=== PATIENT | female | born 1980 | race Caucasian/White ===

== ENCOUNTER → 2024-05-14 | Outpatient (CLI) | payer BC, SELFPAY ==
--- NOTE | 2024-05-14 13:25 | XR_ITS ---
Examination: Foot, right, 3 views Technique: AP, oblique, lateral views foot, 3 views Date and time of exam: May 06, 2024 1336 hrs. Indications: Right foot pain beginning 3 days ago no trauma Findings: Moderate osteopenia Mild narrowing first metatarsophalangeal joint No fracture No cortical bone destruction Impression: Mild narrowing first metatarsophalangeal joint
== END | disposition home or self-care (01) ==
LOC: CDIM 13:10
PROVIDERS: Referring Provider Nurse Practitioner Family; Visit Provider Nurse Practitioner Family
DX: M25.871 Other specified joint disorders, right ankle and foot (principal)
CPT/HCPCS: 73630

== ENCOUNTER → 2024-08-12 | Outpatient (CLI) | payer BC, SELFPAY ==
--- NOTE | 2024-08-12 15:45 | XR_ITS ---
Examination: Screening digital mammography, bilateral Computer aided detection 3-D breast Tomosynthesis, bilateral Date and time of exam: August 12, 2024 1452 hours Comparison made to mammograms dating to April 09, 2023h INDICATIONS: Burning sensation right breast 6 months Indication: Screening Technique: Nonmagnified MLO, CC views of the breasts to been obtained, reconstructed from 3-D Tomosynthesis images. R2 computer aided detection program utilized for evaluation of suspicious masses and/or abnormal calcifications. 3-D Tomosynthesis images obtained. Findings: The breasts are heterogeneously dense, which may obscure small masses 14 mm mass inner right breast posterior depth 5.1 cm from the nipple 6 mm nodule inner left breast anterior depth 4.3 cm from the nipple Impression: BI-RADS Category 0: Incomplete: Need additional imaging evaluation Recommend follow-up spot tomographic views in her upper right breast and inner upper left breast to assess focal asymmetries described above, as well as bilateral breast sonography
== END | disposition home or self-care (01) ==
PROVIDERS: PCP Nurse Practitioner Family
DX: Z12.31 Encounter for screening mammogram for malignant neoplasm of breast (principal); N64.89 Other specified disorders of breast
CPT/HCPCS: 77063; 77067

== ENCOUNTER → 2024-09-15 | Outpatient (CLI) | payer BC, SELFPAY ==
--- NOTE | 2024-09-15 09:00 | XR_ITS ---
Examination: Breast ultrasound complete, bilateral Date and time of exam: September 15, 2024 0916 hours INDICATIONS: Burning sensation in the breast 6 months, mammogram August 12, 2024 14 mm mass inner right breast posterior depth 6 mm nodule inner left breast Technique: Real-time grayscale ultrasonographic imaging bilateral breasts, including all 4 quadrants as well as nipple retroareolar and axillary regions. Findings: Sonographic images right breast Multiple benign cysts 4:00 solid nodule indistinct margins 13 x 5 x 12 mm Sonographic images left breast Benign cysts No solid nodules IMPRESSION: BI-RADS Category 4: Suspicious for malignancy Suspicious mass 4:00 position right breast, 13 x 5 x 12 mm, recommend rebiopsy of this mass to exclude breast carcinoma
--- NOTE | 2024-09-15 10:00 | XR_ITS ---
Examination: Diagnostic digital mammography, bilateral Computer aided detection 3-D breast Tomosynthesis, bilateral Date and time of exam: September 15, 2024 0934 hours INDICATIONS: Mammogram August 12, 2024 14 mm mass inner right breast 6 mm nodule inner left breast Technique: Nonmagnified MLO, CC views of the breasts to been obtained, reconstructed from 3-D Tomosynthesis images. R2 computer aided detection program utilized for evaluation of suspicious masses and/or abnormal calcifications. 3-D Tomosynthesis images obtained. Findings: The breasts are heterogeneously dense, which may obscure small masses Poorly defined mass inner right breast on the spot compression CC views, likely corresponding to the 4:00 solid nodule indistinct margins 13 x 5 x 12 mm on the right breast sonogram today No suspicious left breast mass is noted on the spot compression views Impression: BI-RADS Category 4: Suspicious for malignancy Suspicious nodule inner right breast on the spot compression CC view, likely corresponding to the 4:00 nodule indistinct margins 13 x 5 x 12 mm on the right breast sonogram today, biopsy of this mass is needed to exclude breast carcinoma, under ultrasound guidance.
== END | disposition home or self-care (01) ==
PROVIDERS: PCP Nurse Practitioner Family; Referring Provider Nurse Practitioner Family; Visit Provider Nurse Practitioner Family
DX: R92.343 Mammographic extreme density, bilateral breasts (principal); N63.10 Unspecified lump in the right breast, unspecified quadrant; N63.14 Unspecified lump in the right breast, lower inner quadrant
CPT/HCPCS: 76641; 77062; 77066; G0279

== ENCOUNTER → 2024-10-11 | Outpatient (CLI) | payer BC, SELFPAY ==
[2024-10-08 08:42] LABS: Basophils # (Auto) 0.1 Thou/mm3 (0.0-0.2); Basophils % (Auto) 1 % (0-2.5); Eosinophils # (Auto) 0.1 Thou/mm3 (0.0-0.5); Eosinophils % (Auto) 1 % (0-10); Hematocrit 44.4 % (36.0-46.0); Hemoglobin 15.1 g/dL (12.0-16.0); Immature Granulocytes Auto 0.03 Thou/mm3 (0.00-0.00); Lymphocytes # (Auto) 1.9 Thou/mm3 (1.0-4.8); Lymphocytes % (Auto) 23 % (10-50); Mean Corpuscular HGB Conc 34.0 g/dl (31.0-37.0); Mean Corpuscular Hemoglobin 31.9 pg (25.0-35.0); Mean Corpuscular Volume 94 fL (80-100); Monocytes # (Auto) 0.6 Thou/mm3 (0.0-0.8); Monocytes % (Auto) 7 % (0-12); Neutrophils # (Auto) 5.7 Thou/mm3 (1.8-7.7); Neutrophils % (Auto) 68 % (37-80); Nucleated Red Blood Cell # 0.00 Thou/mm3 (0.00-0.00); Nucleated Red Blood Cell % 0 /100 WBC (0); Platelet Count 294 Thou/mm3 (140-440); RDW Standard Deviation 45.1 fL (36.4-46.3); Red Blood Count 4.74 Miln/mm3 (4.00-5.20); White Blood Count 8.4 Thou/mm3 (3.6-11.0)
[2024-10-08 08:58] LABS: INR 1.1 (0.9-1.3); Partial Thromboplastin Time 27.5 Seconds (22.0-36.0); Prothrombin Time 11.9 Seconds (9.0-12.2)
[2024-10-08 09:06] LABS: HCG,Qualitative Serum Negative
--- NOTE | 2024-10-11 10:30 | XR_ITS ---
Examinations: Ultrasound-guided percutaneous breast biopsy, right breast 4:00 nodule Right breast sonography limited INDICATIONS: Right breast sonogram September 15, 2024 BI-RADS 4 suspicious nodule 4:00 position right breast. Exam date and time: October 11, 2024, 10:36 PM. Informed consent provided. Technique: A timeout was completed verifying correct patient, procedure, site, positioning, and special equipment if applicable Informed consent provided. The patient was placed in a supine position for the breast biopsy. Sonographic images of the breast were performed for localization of the suspicious nodule The patient's breast was prepped and draped in sterile fashion. Maximum sterile barrier technique, hand hygiene, ultrasound sterile technique 1% lidocaine was used to anesthetize the skin and breast adjacent to the suspicious nodule. Utilizing ultrasonographic guidance, 8 core biopsies were obtained of the suspicious nodule utilizing an 18-gauge BioPince needle. The specimens appears satisfactory. US guided breast biopsy marker placement. Estimated blood loss 3 cc. The patient tolerated the procedure well and there were no complications. Impression: Successful ultrasound-guided percutaneous breast biopsy, right breast 4:00 nodule. Ultrasound guided breast biopsy marker placement.
== END | disposition home or self-care (01) ==
LOC: SIRX 10:16
PROVIDERS: Radiology Diagnostic Radiology; PCP Nurse Practitioner Family; Referring Provider Nurse Practitioner Family; Visit Provider Nurse Practitioner Family
DX: D24.2 Benign neoplasm of left breast (principal); N60.11 Diffuse cystic mastopathy of right breast; Z01.812 Encounter for preprocedural laboratory examination
CPT/HCPCS: 19083; 36415; 84703; 85025; 85610; 85730; A4648